=== PATIENT | male | born 1945 | race Caucasian/White ===

== ENCOUNTER 2021-02-13 10:00 | Outpatient (CLI) | payer OTHER, SELFPAY ==
[~2021-02-13] VITALS: Ht 177.8 cm; Wt 95.3 kg
[~2021-02-13 10:00] MED LIST: GLIP10TA11 PO; LOSA50TA3 PO
[2021-02-14] MEDS ORDERED: CEFAZOLIN SOD 2 GM in D5W 50 ML IV ONE (07:00)
== END 2021-02-13 10:30 | disposition home or self-care (01) ==
LOC: SLB 10:00 → EDSTATUS 02-14 13:30
PROVIDERS: ATTEND Surgery
DX: Z01.812 Encounter for preprocedural laboratory examination (principal); Z20.822 Contact with and (suspected) exposure to COVID-19; K40.91 Unilateral inguinal hernia, without obstruction or gangrene, recurrent
CPT/HCPCS: 36415; J0690; J7060

== ENCOUNTER 2021-03-10 06:53 | Day surgery (SDC) | payer OTHER ==
[~2021-03-10] VITALS: Ht 177.8 cm; Wt 95.3 kg
[2021-03-10] MEDS ORDERED: CEFAZOLIN SOD 2 GM in D5W 50 ML IV ONE (07:00)
[2021-03-10] MEDS ORDERED: POLYMYXIN 500,000/BACIT.10,000 UNITS in NS IRR 1 L IR ONE (08:51)
[2021-03-10] MEDS ORDERED: BUPIVACAINE /EPINEPHRINE/PF 0.5% 30 ML VIAL INJ ONE (09:02)
[2021-03-10] MEDS ORDERED: MIDAZOLAM HCL 5 MG/5 ML VIAL IVP ONE (09:02)
[2021-03-10] MEDS ORDERED: PROPOFOL 200MG/ 20ML VIAL (DIPRIVAN) IV ONE (09:02)
[2021-03-10] MEDS ORDERED: SEVOFLURANE 15 MIN GAS INH ONE (09:02)
[2021-03-10] MEDS ORDERED: NS 1000 ML IV.SOLN IV ONE (09:02)
[2021-03-10] MEDS ORDERED: fentaNYL CITRATE/PF 100 MCG/2 ML AMP IVP ONE (09:02)
[2021-03-10] MEDS ORDERED: SUCCINYLCHOLINE CHLORIDE 20 MG/ML(QUELICIN) IVP ONE (09:02)
[2021-03-10] MEDS ORDERED: METOCLOPRAMIDE HCL 10 MG/2 ML VIAL IVP ONE (09:02)
[2021-03-10] MEDS ORDERED: WATER FOR IRRIGATION,STERILE 1,000 ML IRRIG.SOLN IR ONE (09:02)
[2021-03-10] MEDS ORDERED: NS IRRIG SOLN 1000 ML IR ONE (09:02)
[2021-03-10] MEDS ORDERED: ePHEDrine sulfate 50 MG/ML VIAL IVP ONE (09:02)
[2021-03-10] MEDS ORDERED: DEXAMETHASONE SOD PHOSPHATE 4 MG/ML VIAL IVP ONE (09:02)
[2021-03-10] MEDS ORDERED: LR 1,000 ML IV.SOLN IV ONE (09:02)
[2021-03-10] MEDS ORDERED: ACETAMINOPHEN I.V. 1000 MG 100 ML IV ONE (10:23)
[2021-03-10] MEDS ORDERED: MEPERIDINE HCL/PF 25 MG/ML DISP.SYRIN IVP PRN (10:30)
[2021-03-10] MEDS ORDERED: HYDROmorphone 1 MG/ML INJ. CARTRIDGE IVP PRN (10:30)
[2021-03-10] MEDS ORDERED: MIDAZOLAM HCL 5 MG/5 ML VIAL IVP PRN (10:30)
[2021-03-10] MEDS ORDERED: NALOXONE HCL 0.4 MG/ML AMP (NARCAN) IVP PRN (10:30)
[2021-03-10] MEDS ORDERED: DILTIAZEM HCL 25 MG/5 ML VIAL IVP PRN (10:30)
[2021-03-10] MEDS ORDERED: HYDROmorphone 2 MG/ML VIAL IVP PRN ×2 (10:30)
[2021-03-10] MEDS ORDERED: LR 1,000 ML IV SCH (10:30)
[2021-03-10] MEDS ORDERED: ePHEDrine sulfate 50 MG/ML VIAL IVP PRN (10:30)
[2021-03-10] MEDS ORDERED: traMADol HCL HCL 50 MG TABLET (ULTRAM) PO SCH (12:00)
[2021-03-10 14:58] VITALS: BP_SYST 140
== END 2021-03-10 14:40 | disposition home or self-care (01) ==
LOC: SDS 06:53 → SMU 06:54 → SDS 14:40
PROVIDERS: ATTEND Surgery
DX: K40.91 Unilateral inguinal hernia, without obstruction or gangrene, recurrent (principal); I12.9 Hypertensive chronic kidney disease with stage 1 through stage 4 chronic kidney disease, or unspecified chronic kidney disease; E11.22 Type 2 diabetes mellitus with diabetic chronic kidney disease; N18.2 Chronic kidney disease, stage 2 (mild); F41.9 Anxiety disorder, unspecified; F32.9 Major depressive disorder, single episode, unspecified; E11.51 Type 2 diabetes mellitus with diabetic peripheral angiopathy without gangrene; E11.42 Type 2 diabetes mellitus with diabetic polyneuropathy; E78.5 Hyperlipidemia, unspecified; Z79.01 Long term (current) use of anticoagulants; Z79.82 Long term (current) use of aspirin; Z79.899 Other long term (current) drug therapy
CPT/HCPCS: 36415; 49651; 64425; 82962; 87426; C1781; J0131; J0330; J0690; J1100; J2250; J2704; J2765; J3010; J3490; J7030; J7060; J7120; S2900